=== PATIENT | female | born 2000 | race Caucasian/White ===

== ENCOUNTER 2020-05-01 11:47 | Emergency (ER) | payer BC ==
--- OUTSIDE RECORDS SUMMARY | 2020-05-01 11:49 | XMS REPORT | Continuity of Care Document ---
:2000 Author Organization [facility] t Address [address] [place] [address] Care Team Providers Name Role Phone Draw, Lab Attending Clinician Unavailable Tejinder Thomas MD Attending Clinician Problems This patient has no known problems. Allergies, Adverse Reactions, Alerts This patient has no known allergies or adverse reactions. Medications This patient has no known medications. Procedures This patient has no known procedures. Encounters Start End Encounter Admission Attending Care Care Encounter Source Date/Time Date/Time Type Type Clinicians Facility Department ID 2020-04-27 2020-04-27 Legal Billing Specialist Nancy [facility] [id number] 15:54:03 16:09:03 Visit [facility] [id number] Clear [id number] [place] [id number] [place] [id number] Office Building 2020-04-19 2020-04-19 Routine DEUCE Thomas [id number] 1930 15:45:12 16:34:57 [facility] [id number] Visit Clear [id number] Kyle [phone] Medical [facility] Office Building Results This patient has no known results.
[2020-05-01 12:48] LABS: Absolute Lymphocytes (CBC) 1.9 K/uL (0.7-4.9); Basophils % 0.6 % (0-1.3); Hematocrit 37.3 % (36.0-45.0); Lymphocytes % 23.1 % (15.3-44.8); MPV 10.3 fL (7.6-11.3); RBC Red Blood Cell Count 4.46 M/uL (3.86-4.86)
[2020-05-01 13:05] LABS: Urine Blood 1+ (Negative); Urine Glucose NEGATIVE (Negative); Urine Protein NEGATIVE (NEG); Urine pH 6.5 (5.0-7.0)
[2020-05-01 13:16] LABS: Urine Bacteria <20 /HPF (<20); Urine RBC <5 /HPF (NONE SEEN)
[2020-05-01 13:21] LABS: BUN Blood Urea Nitrogen 7 mg/dL (7-18); Bicarbonate 24 mmol/L (21-32); Glucose Level 90 mg/dL (74-106); HCG, Quantitative 68350 mIU/mL (1-3); Potassium 3.9 mmol/L (3.5-5.1); Sodium Level 139 mmol/L (136-145)
--- NOTE | 2020-05-01 14:22 | RAD REPORT ---
EXAM DESCRIPTION: US - Matter Kb Tm 1 - 05/01/2020 1:50 pm CLINICAL HISTORY: with pelvic pain COMPARISON: None. FINDINGS: The uterus measures 12 x 7 x 6 centimeters. . A normal appearing gestational sac is prese nt within the endometrium. Within this is a pole with a crown-rump length 6 centimeters. Cardia c activity 163 beats per minute The cervix measures 3.6 centimeters. Right and left ovary appear normal. . The right and left adnexa unremarkable No significant free fluid is seen. IMPRESSION: Single live intrauterine with an estimated gestational age 12 weeks 3 days ED D 11/10/2020 If a survey is desired it should performed in approximately 6 weeks
--- NOTE | 2020-05-01 14:49 | ER ---
Nurse's Notes [facility] Name: Kimberly Day Age: 20 yrs Sex: Female : 2000 Arrival Date: 05/01/2020 Time: 11:55 Bed 15 Private MD: Diagnosis: Unspecified abdominal pain Presentation: 05/01 12:03 Chief complaint: Patient states: R sided abd pain for 3 days. Denies N/V/D, no known ll1 fever. No vag. bleeding. SOB, constant since last night. Denies cough. 12 weeks G1, P0. Coronavirus screen: Client denies travel out of the [place] in the last 14 days. At this time, the client does not indicate any symptoms associated with coronavirus-19. Coronavirus screen: difficulty breathing, shortness of breath. Ebola Screen: Patient denies travel to an Ebola-affected area in the 21 days before illness onset. Initial Sepsis Screen: Does the patient meet any 2 criteria? No. Patient's initial sepsis screen is negative. Does the patient have a suspected source of infection? Yes: Acute abdominal pain. Risk Assessment: Do you want to hurt yourself or someone else? Patient reports no desire to harm self or others. Onset of symptoms was April 29, 2020. 12:03 Method Of Arrival: Ambulatory ll1 12:03 Acuity: ROSENDO 3 ll1 Historical: - Allergies: 12:03 No Known Allergies; ll1 - PMHx: 12:03 None; ll1 - PSHx: 12:03 cleft palate repair; ll1 - Immunization history:: Flu vaccine is not up to date. - Social history:: Smoking status: Patient denies any tobacco usage or history of. Screenin:17 Abuse screen: Denies threats or abuse. Nutritional screening: No deficits noted. vg1 Tuberculosis screening: No symptoms or risk factors identified. Fall Risk No fall in past 12 months (0 pts). No secondary diagnosis (0 pts). No IV (0 pts). Ambulatory Aid- None/Bed Rest/Nurse Assist (0 pts). Gait- Normal/Bed Rest/Wheelchair (0 pts) Mental Status- Oriented to own ability (0 pts). Total Wallace Fall Scale indicates No Risk (0-24 pts). Assessment: 12:15 General: Appears in no apparent distress. comfortable, Behavior is calm, cooperative. vg1 Pain: Complains of pain in right lower quadrant Pain currently is 3 out of 10 on a pain scale. at worst was 7 out of 10 on a pain scale. Pain began 1 day ago. Neuro: Level of Consciousness is awake, alert, obeys commands, Oriented to person, place, time, situation. Cardiovascular: Patient's skin is warm and dry. Respiratory: Airway is patent Respiratory effort is even, unlabored, Breath sounds are clear bilaterally. GI: Bowel sounds present X 4 quads. Abd is soft X 4 quads Abdomen is tender to palpation in right lower quadrant. GI: Patient currently denies diarrhea, nausea, vomiting. : No signs and/or symptoms were reported regarding the genitourinary system. : Denies vaginal bleeding. EENT: No signs and/or symptoms were reported regarding the EENT system. Derm: Skin is intact, is healthy with good turgor. Musculoskeletal: Circulation, motion, and sensation intact. 13:18 Reassessment: Patient appears in no apparent distress at this time. No changes from vg1 previously documented assessment. Patient and/or family updated on plan of care and expected duration. Pain level reassessed. Patient is alert, oriented x 3, equal unlabored respirations, skin warm/dry/pink. 13:26 Reassessment: US at bedside. vg1 14:25 Reassessment: Patient appears in no apparent distress at this time. Patient and/or vg1 family updated on plan of care and expected duration. Pain level reassessed. Patient is alert, oriented x 3, equal unlabored respirations, skin warm/dry/pink. Vital Signs: 12:03 BP 141 / 80; Pulse 88; Resp 17; Temp 98.4; Pulse Ox 99% on R/A; Weight 86.18 kg; Height ll1 5 ft. 3 in. (160.02 cm); Pain 5/10; 12:17 BP 112 / 61; Pulse 70; Resp 16; Pulse Ox 98% on R/A; vg1 13:18 BP 111 / 57; Pulse 76; Resp 16; Pulse Ox 100% on R/A; vg1 14:25 BP 112 / 54; Pulse 76; Resp 16; Pulse Ox 100% on R/A; vg1 12:03 Body Mass Index 33.66 (86.18 kg, 160.02 cm) ll1 ED Course: 11:55 Patient arrived in ED. mr 11:59 Shahnaz Harman, FISCAL ASSISTANT is PHCP. pm1 11:59 Maximus Young MD is Attending Physician. pm1 12:03 Arm band placed on Patient placed in an exam room, on a stretcher. ll1 12:05 Triage completed. ll1 12:06 Kirsten Jackson, RN is Primary Nurse. vg1 12:17 Patient has correct armband on for positive identification. Bed in low position. Call vg1 light in reach. Side rails up X 1. 12:44 Initial lab(s) drawn, by me, sent to lab. T\T\S collected, blood band applied to patient. jp3 Inserted saline lock: 20 gauge in left antecubital area, using aseptic technique. Blood collected. Patient maintains SpO2 saturation greater than 95% on room air. 13:00 Urine collected: clean catch specimen, clear, natasha colored. jp3 13:00 Urine Microscopic Only Sent. jp3 13:49 Matter Eval Tm 1 In Process Unspecified. EDMS 13:50 Ultrasound completed. Patient tolerated well. Notified FISCAL ASSISTANT/TRACIE carter. sg3 15:08 No provider procedures requiring assistance completed. IV discontinued, intact, vg1 bleeding controlled, No redness/swelling at site. Pressure dressing applied. Administered Medications: No medications were administered Point of Care Testing: Urine : 13:00 hCG Reading: Positive; Control Reading: Positive; jp3 Outcome: 14:48 Discharge ordered by . pm1 15:08 Discharged to home ambulatory. vg1 15:08 Condition: stable 15:08 Discharge instructions given to patient, Instructed on discharge instructions, follow up and referral plans. Demonstrated understanding of instructions, follow-up care. 15:09 Patient left the ED. vg1 Signatures: Dispatcher [employer] EDSD Carmen Mccrary Jane Ivyrick, MANJIT FISCAL ASSISTANT pm1 Blanquita Burleson sg3 Theodore Scott jp3 Kirsten Jackson, HIPOLITO RN vg1 Zac Bishop RN RN ll1
--- NOTE | 2020-05-01 14:49 | EDPHYS ---
Physician Documentation [facility] Name: Kimberly Day Age: 20 yrs Sex: Female : 2000 Arrival Date: 05/01/2020 Time: 11:55 Bed 15 Private MD: ED Physician Maximus Young HPI: 05/01 12:30 This 20 yrs old Female presents to ER via Ambulatory with complaints of 12wks pm1 , Abdominal Pain, Shortness Of Breath. 12:30 The patient presents with abdominal pain right lower quadrant. pm1 12:30 Onset: The symptoms/episode began/occurred 3 day(s) ago. The symptoms do not radiate. pm1 Associated signs and symptoms: Pertinent positives: occasional shortness of breath. Occasional chest pain. Not currently having shortness of breath or chest pain. The symptoms are described as achy. Modifying factors: The symptoms are alleviated by nothing, the symptoms are aggravated by movement. Severity of pain: in the emergency department the pain is unchanged. The patient has not experienced similar symptoms in the past. Patient with U/S from her OB. OB with [facility] system. Historical: - Allergies: 12:03 No Known Allergies; ll1 - PMHx: 12:03 None; ll1 - PSHx: 12:03 cleft palate repair; ll1 - Immunization history:: Flu vaccine is not up to date. - Social history:: Smoking status: Patient denies any tobacco usage or history of. ROS: 12:30 Constitutional: Negative for fever, chills, and weight loss, ENT: Negative for injury, pm1 pain, and discharge, Neck: Negative for injury, pain, and swelling. 12:30 Back: Negative for injury and pain, : Negative for injury, bleeding, discharge, and swelling, MS/Extremity: Negative for injury and deformity, Skin: Negative for injury, rash, and discoloration, Neuro: Negative for headache, weakness, numbness, tingling, and seizure. 12:30 Cardiovascular: Positive for chest pain, Negative for edema. 12:30 Respiratory: Positive for shortness of breath, Negative for cough, dyspnea on exertion. 12:30 Abdomen/GI: Positive for abdominal pain, Negative for nausea, vomiting, and diarrhea, constipation. Exam: 12:30 Constitutional: This is a well developed, well nourished patient who is awake, alert, pm1 and in no acute distress. Head/Face: Normocephalic, atraumatic. Chest/axilla: Normal chest wall appearance and motion. Nontender with no deformity. No lesions are appreciated. 12:30 Back: No spinal tenderness. No costovertebral tenderness. Full range of motion. Skin: Warm, dry with normal turgor. Normal color with no rashes, no lesions, and no evidence of cellulitis. MS/ Extremity: Pulses equal, no cyanosis. Neurovascular intact. Full, normal range of motion. 12:30 Cardiovascular: Exam negative for acute changes, Rate: normal, Rhythm: regular, Pulses: no pulse deficits are appreciated, Edema: is not appreciated. 12:30 Respiratory: Exam negative for acute changes, respiratory distress, shortness of breath, Breath sounds: are clear throughout. 12:30 Neuro: Orientation: is normal, Mentation: is normal, Motor: is normal, moves all fours. 14:39 Abdomen/GI: Palpation: abdomen is soft and non-tender, in all quadrants. pm1 Vital Signs: 12:03 BP 141 / 80; Pulse 88; Resp 17; Temp 98.4; Pulse Ox 99% on R/A; Weight 86.18 kg; Height ll1 5 ft. 3 in. (160.02 cm); Pain 5/10; 12:17 BP 112 / 61; Pulse 70; Resp 16; Pulse Ox 98% on R/A; vg1 13:18 BP 111 / 57; Pulse 76; Resp 16; Pulse Ox 100% on R/A; vg1 14:25 BP 112 / 54; Pulse 76; Resp 16; Pulse Ox 100% on R/A; vg1 12:03 Body Mass Index 33.66 (86.18 kg, 160.02 cm) ll1 MDM: 12:14 Patient medically screened. pm1 14:08 ED course: IUP 12 weeks and 3 days. pm1 14:08 Data reviewed: vital signs. Data interpreted: Pulse oximetry: on room air is 100 %. pm1 Interpretation: normal. 14:46 Counseling: I had a detailed discussion with the patient and/or guardian regarding: the pm1 historical points, exam findings, and any diagnostic results supporting the discharge/admit diagnosis, lab results, radiology results, the need for outpatient follow up, to return to the emergency department if symptoms worsen or persist or if there are any questions or concerns that arise at home. 05/01 12:25 Order name: Quantitative Hcg; Complete Time: 14:08 pm1 05/01 12:25 Order name: Abo/rh Typing; Complete Time: 14:48 pm1 05/01 12:25 Order name: Basic Metabolic Panel; Complete Time: 14:08 pm1 05/01 12:25 Order name: CBC with Diff; Complete Time: 13:03 pm1 05/01 12:26 Order name: Urine Microscopic Only; Complete Time: 14:08 pm1 05/01 13:01 Order name: Urine Dipstick--Ancillary (enter results); Complete Time: 13:09 eb 05/01 12:25 Order name: Urine Test (obtain specimen); Complete Time: 13:00 pm1 05/01 12:25 Order name: IV Saline Lock; Complete Time: 12:44 pm1 05/01 12:25 Order name: Labs collected and sent; Complete Time: 12:44 pm1 05/01 12:25 Order name: NPO; Complete Time: 12:33 pm1 05/01 13:01 Order name: Urine --Ancillary (enter results); Complete Time: 13:09 05/01 13:16 Order name: Urine Culture [facility] 05/01 13:47 Order name: Matter Eval Tm 1; Complete Time: 14:36 [facility] 05/01 12:25 Order name: Urine Dipstick-Ancillary (obtain specimen); Complete Time: 13:00 pm1 Administered Medications: No medications were administered Point of Care Testing: Urine : 13:00 hCG Reading: Positive; Control Reading: Positive; jp3 Disposition: 15:43 Co-signature as Attending Physician, Maximus Young MD. rn Disposition: 05/01/20 14:48 Discharged to Home. Impression: Unspecified abdominal pain. - Condition is Stable. - Discharge Instructions: Abdominal Pain During . - Medication Reconciliation Form, Thank You Letter, Antibiotic Education, Prescription Opioid Use, Work release form form. - Follow up: Emergency Department; When: As needed; Reason: Worsening of condition. Follow up: Private Physician; When: 2 - 3 days; Reason: Recheck today's complaints, Continuance of care, Re-evaluation by your physician. - Problem is new. - Symptoms have improved. Signatures: Dispatcher [employer] [facility] Maximus Young MD MD rn Harman Christie, GRANTS ANALYST GRANTS ANALYST pm1 Kirsten Jackson RN RN vg1 Zac Bishop RN RN ll1 Corrections: (The following items were deleted from the chart) 13:47 12:26 Transvaginal Ob+US.RAD.BRZ ordered. EDWA EDWA 15:09 14:48 05/01/2020 14:48 Discharged to Home. Impression: Unspecified abdominal pain. vg1 Condition is Stable. Forms are Medication Reconciliation Form, Thank You Letter, Antibiotic Education, Prescription Opioid Use. Follow up: Emergency Department; When: As needed; Reason: Worsening of condition. Follow up: Private Physician; When: 2 - 3 days; Reason: Recheck today's complaints, Continuance of care, Re-evaluation by your physician. Problem is new. Symptoms have improved. pm1
[2020-05-02 00:24] VITALS: TEMP 98.4
[2020-05-02 00:26] VITALS: O2SAT 100
[2020-05-02 00:28] VITALS: BP 112/54
== END 2020-05-01 15:09 | disposition home or self-care (01) ==
LOC: ER 11:47
DX: O26.891 Other specified pregnancy related conditions, first trimester (principal); Z3A.12 12 weeks gestation of pregnancy
CPT/HCPCS: 36415; 76801; 80048; 81003; 81015; 81025; 84702; 85025; 86900; 86901; 87086; 87088; 99284